=== PATIENT | male | born 1990 | race Two or more races ===

== ENCOUNTER 2018-01-03 02:02 | Emergency (ER) | payer SELFPAY ==
[2018-01-03] MEDS ORDERED: TDAP ADULT 0.5 ML INJ (BOOSTRIX) IM ONE ×2 (02:33)
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
[2018-01-03] MEDS ORDERED: SKIN ADHESIVE (DERMABOND) 1 EACH TP ONE (03:10)
[2018-01-03 03:48] VITALS: BP 127/88
== END 2018-01-03 03:49 | disposition home or self-care (01) ==
PROC: 0HQ1XZZ Repair Face Skin, External Approach (ICD-10-PCS; principal; 2018-01-03)
DX: S01.112A Laceration without foreign body of left eyelid and periocular area, initial encounter (principal); F17.200 Nicotine dependence, unspecified, uncomplicated; Z23 Encounter for immunization; Y04.0XXA Assault by unarmed brawl or fight, initial encounter; Y92.89 Other specified places as the place of occurrence of the external cause; Y99.8 Other external cause status; Y93.01 Activity, walking, marching and hiking